=== PATIENT | female | born 1975 | race Caucasian/White ===

== ENCOUNTER 2024-03-12 09:15 | Emergency (ER) | payer OTHER, SELFPAY ==
[2024-03-12 09:21] VITALS: BP 133/68; PULSE 67; TEMP 36.6; O2SAT 100; BMI 22.7
[2024-03-12 09:24] VITALS: BP 133/68; O2SAT 100
[2024-03-12 09:25] VITALS: BP 130/85; O2SAT 100
[2024-03-12 09:26] VITALS: BP 128/92; O2SAT 100
[2024-03-12 09:33] VITALS: BP 128/97; BP 130/85; BP 133/68; PULSE 64; PULSE 67; PULSE 71
--- NOTE | 2024-03-12 09:42 | CT_ITS ---
The [address] [address] Patient Name: OUSMANE HUNTER MRN: [id number] date: 1975 Sex: F Assigned Patient Location: ER Current Patient Location: ER Accession/Order Number: [id number] Exam Date: 03/12/2024 09:56 Report Date: 03/12/2024 11:13 At the request of: PATRIZIA LINARES Procedure: CT head/brain wo con EXAM: CT head/brain wo con, CT orbit BI wo con HISTORY: chi, dizzy COMPARISON: None available at the time of dictation. TECHNIQUE: Axial unenhanced CT images were obtained through the brain. Individualized dose optimization technique was used for the performed procedure by employing the following: Automated exposure control, adjustment of the mA and/or kV according to patient's size, and/or the use of the iterative construction technique. Coronal and sagittal reformats were performed. FINDINGS: No acute intracranial abnormality. No acute infarct, hemorrhage or mass. No midline shift. Caruso-white matter differentiation is preserved. Ventricles and sulci are normal in size. No acute osseous abnormality. Paranasal sinuses are clear. Mastoid air cells are open. Orbits are normal. CT/CT head/brain wo con IMPRESSION: 1. No acute intracranial abnormality. No acute intracranial infarct visualized by this modality. (MRI is more sensitive). No acute intracranial hemorrhage 2. No acute orbital abnormality. Electronically authenticated by: LOREE TRUJILLO Date: 03/12/2024 11:13
--- NOTE | 2024-03-12 09:42 | ECG_ITS ---
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
[2024-03-12 09:45] VITALS: PULSE 60
--- NOTE | 2024-03-12 09:46 | ED_ITS ---
HPI HPI - General Adult General Chief complaint: Dizziness Stated complaint: DIZZY FOLLOWING A FALL Time Seen by Provider: 03/12/24 09:42 Source: patient Mode of arrival: walk-in Limitations: no limitations History of Present Illness HPI narrative: Patient is a 49-year-old female who is presenting to the ER today with chief complaint of tripping on a fan and falling and hitting the left side of her face against a hard dresser that had a handle on it. The patient has ecchymosis around the left eye. Patient is having some left-sided neck pain as well. Patient also having some tenderness to the superior orbit of left eye, some mild tenderness to left TMJ and the left cheek. This occurred Monday evening. Patient did have some extra Motrin 800 mg that she has been using for pain at home along with ice. 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 Patient feels like she has some mild lightheaded dizziness, no vertigo. No chest pain or shortness of breath. No nausea. No other acute complaints. Patient takes no blood thinners. at bedside. Patient's had no vomiting. No acute vision changes, she has some mild discomfort to the left ear as well. All systems are negative except as noted/marked. All systems reviewed and otherwise negative. Nurses note and vital signs reviewed and patient is not hypoxic. General: The patient appears well and in no apparent distress. Patient is resting comfortably on cart. Patient is not toxic, lethargic, or listless Skin: Warm, dry, no pallor noted. There is no rash noted. No petechiae, purpura. Head: Normocephalic, atraumatic; patient does have mild tenderness to palpation to the left paracervical soft tissue, she does have full range of motion of cervical spine with mild pain. Mild tenderness to palpation to the left paracervical, left upper trapezius muscle. Eye: Normal conjunctiva, no drainage, EOMI. PERRL Ears, Nose, Mouth, and Throat: oral mucosa is moist. Left TM shows no erythema, perforation or bulging. No hemotympanums, or Bowling sign. Patient does have some mild ecchymosis to the medial aspect of the soft tissues around the medial superior aspect of her left eye to left upper eyelid. Moderate tenderness to palpation to the superior orbit on the left. No pain to the left lateral or inferior orbit bony prominence. Nares patent. Mouth without vesicles. Cardiovascular: Regular Rate and Rhythm, no murmur, gallop, rub Respiratory: Patient is in no distress, no accessory muscle use, lungs are clear to auscultation, no wheezing, rales or rhonchi Back: non-tender, GI: no tenderness Musculoskeletal: Patient has full range of motion of all of the extremities, no motor, sensory, or focal neurological deficits Neurological: A&O x4, normal speech Psychiatric: Cooperative Related Data Home Medications ?Medication ?Instructions ?Recorded ?Confirmed escitalopram oxalate 20 mg tablet 20 mg PO .daily 03/12/24 03/12/24 metformin 500 mg tablet 500 mg PO TID 03/12/24 03/12/24 naltrexone 4.5 mg capsule mg PO 03/12/24 (Lotrexone) Previous Rx's ?Medication ?Instructions ?Recorded cephalexin 500 mg capsule 500 mg PO Q12H 7 days #14 caps 03/12/24 ondansetron 4 mg disintegrating 4 mg PO Q4H PRN nausea and 03/12/24 tablet vomiting 3 days #6 tabs Allergies Allergy/AdvReac Type Severity Reaction Status Date / Time aspirin AdvReac Intermediate Swelling Verified 03/12/24 09:28 of the Eye Penicillins AdvReac Intermediate HIVES Verified 03/12/24 09:28 Opioid HPI Opioid Management Most Recent Opioid Data: No Data to Display PFSH PFSH Social History Little interest or pleasure in doing things: not at all Feeling down, depressed, or hopeless: not at all Exam Constitutional Vital Signs, click to edit/add: Last Vital Signs Temp 97.8 F 03/12/24 09:21 Pulse 60 03/12/24 09:45 Resp 8 L 03/12/24 09:45 BP 133/68 03/12/24 09:33 Pulse Ox 100 03/12/24 09:26 O2 Del Method Room Air 03/12/24 09:21 Course Vital Signs Vital signs: Vital Signs Temperature 97.8 F 03/12/24 09:21 Pulse Rate 67 03/12/24 09:21 Respiratory Rate 18 03/12/24 09:21 Blood Pressure 133/68 03/12/24 09:21 Pulse Oximetry 100 03/12/24 09:21 Oxygen Delivery Method Room Air 03/12/24 09:21 Temperature 97.8 F 03/12/24 09:21 Pulse Rate 60 03/12/24 09:45 Respiratory Rate 8 L 03/12/24 09:45 Blood Pressure 133/68 03/12/24 09:33 Pulse Oximetry 100 03/12/24 09:26 Oxygen Delivery Method Room Air 03/12/24 09:21 Medical Decision Making MDM Narrative Medical decision making narrative: There is delay in patient's CT reading of the head and facial bones from radiology department. Patient did not anything for pain or nausea. [address] delays on CT readings, CT of the head and facial bones show no acute fractures or acute abnormality. No intracranial bleed. Patient does have evidence of urinary tract infection, there is contamination, urine culture will be ordered. Patient will be placed on Keflex prophylactically. Patient is gi trang Zofran as needed. Patient will continue Tylenol, Motrin, and also given Zofran as needed. Patient will follow-up with PCP, work note given. No questions at this Lab Data Labs: Lab Results 03/12/24 Range/Units 09:20 Urine Color Lt. yellow (YELLOW) Urine Clarity Clear (CLEAR) Urine pH 6.0 (5.0-9.0) Ur Specific [place] <=1.005 A (1.005-1.025) Urine Protein Negative (NEG/TRACE) mg/dL Urine Glucose (UA) Negative (NEGATIVE) mg/dL Urine Ketones Negative (NEGATIVE) mg/dL Urine Occult Blood Small A (NEGATIVE) Urine Nitrite Negative (NEGATIVE) Urine Bilirubin Negative (NEGATIVE) Urine Urobilinogen 0.2 (0.2-1.0) EU/dL Ur Leukocyte Esterase Small A (NEGATIVE) Urine RBC 2-5 A (0-2) #/HPF Urine WBC 5-10 A (NONE SEEN) #/HPF Ur Squamous Epith Cells Moderate A (NONE/RARE) #/LPF Urine Bacteria Large A (NONE SEEN) #/HPF Urine Mucus None seen (NONE SEEN) Ur Culture Indicated? Yes Urine HCG, Qual Negative (NEGATIVE) ECG Data Attestation: I personally reviewed and interpreted this ECG as follows: (EKG interpretation. Normal sinus rhythm at 59 beats a minute. Normal axis deviation. No acute ST elevation, no acute ectopy. QTc of 407) Discharge Plan Discharge Stand Alone Forms: Work/School Release Chief Complaint: Dizziness Clinical Impression: UTI (urinary tract infection), CHI (closed head injury), Facial contusion, Post-concussion syndrome Patient Disposition: Home, Self-Care Time of Disposition Decision: 11:16 Condition: Fair Prescriptions / Home Meds: New cephalexin 500 mg capsule 500 mg PO Q12H 7 Days Qty: 14 0RF ondansetron 4 mg tablet,disintegrating 4 mg PO Q4H PRN (Reason: nausea and vomiting) 3 Days Qty: 6 0RF No Action escitalopram oxalate 20 mg tablet 20 mg PO .daily metformin 500 mg tablet 500 mg PO TID Lotrexone 4.5 mg capsule PO Print Language: Belarusian Instructions: Urinary Tract Infection in Women (ED), Head Injury (ED), Post Concussion Syndrome (ED), Facial Contusion (ED) Additional Instructions: CAT scan of the head and facial bones showed no acute findings. Urine shows probable urinary tract infection, urine culture will be ordered. negative. Postconcussion syndrome instructions were done at bedside and on discharge paperwork. Continue using ice 20 minutes on, 20 minutes off. Alternate Tylenol and either Motrin, Advil, or ibuprofen every 4 hours to help with pain. Maximum dose of Tylenol is 3000 mg a day. Maximum dose of either Motrin, Advil, or ibuprofen is 2400 mg a day. Referrals: LINDY GAR [Primary Care Provider] - 1 week
--- NOTE | 2024-03-12 09:56 | CT_ITS ---
The [address] [address] Patient Name: OUSMANE HUNTER MRN: [id number] date: 1975 Sex: F Assigned Patient Location: ER Current Patient Location: ER Accession/Order Number: [id number] Exam Date: 03/12/2024 09:56 Report Date: 03/12/2024 11:13 At the request of: PATRIZIA LINARES Procedure: CT orbit BI wo con EXAM: CT head/brain wo con, CT orbit BI wo con HISTORY: chi, dizzy COMPARISON: None available at the time of dictation. TECHNIQUE: Axial unenhanced CT images were obtained through the brain. Individualized dose optimization technique was used for the performed procedure by employing the following: Automated exposure control, adjustment of the mA and/or kV according to patient's size, and/or the use of the iterative construction technique. Coronal and sagittal reformats were performed. FINDINGS: No acute intracranial abnormality. No acute infarct, hemorrhage or mass. No midline shift. Caruso-white matter differentiation is preserved. Ventricles and sulci are normal in size. No acute osseous abnormality. Paranasal sinuses are clear. Mastoid air cells are open. Orbits are normal. CT/CT orbit BI wo con IMPRESSION: 1. No acute intracranial abnormality. No acute intracranial infarct visualized by this modality. (MRI is more sensitive). No acute intracranial hemorrhage 2. No acute orbital abnormality. Electronically authenticated by: LOREE TRUJILLO Date: 03/12/2024 11:13
[2024-03-12 10:05] LABS: Bilirubin Urine NEGATIVE (NEGATIVE); Blood Urine SMALL (NEGATIVE); Clarity Urine CLEAR (CLEAR); Color Urine LT. YELLOW (YELLOW); Glucose Urine UA NEGATIVE (NEGATIVE); Ketones Urine NEGATIVE (NEGATIVE); Leukocyte Esterase Urine SMALL (NEGATIVE); Nitrite Urine NEGATIVE (NEGATIVE); Protein Urine NEGATIVE (NEG/TRACE); Specific Gravity Urine <=1.005 (1.005-1.025); Urobilinogen Urine 0.2 EU/dL (0.2-1.0)
[2024-03-12 10:10] LABS: HCG Qualitative Urine* NEGATIVE (NEGATIVE); Internal Control Within Normal Limits
[2024-03-12 10:17] LABS: Bacteria Urine LARGE #/HPF (NONE SEEN); Mucus Urine NONE SEEN (NONE SEEN); Squamous Epithelial Cell Urine MODERATE #/LPF (NONE/RARE); Urine Culture Indicated YES
== END 2024-03-12 11:28 | disposition home or self-care (01) ==
PROVIDERS: Emergency Provider Emergency Medicine; PCP Nurse Practitioner Family
DX: S00.83XA Contusion of other part of head, initial encounter (principal); S09.8XXA Other specified injuries of head, initial encounter; N39.0 Urinary tract infection, site not specified; F07.81 Postconcussional syndrome; W01.190A Fall on same level from slipping, tripping and stumbling with subsequent striking against furniture, initial encounter
CPT/HCPCS: 70450; 70480; 81001; 84703; 87086; 93005; 99285